=== PATIENT | male | born 1980 | race Caucasian/White ===

== ENCOUNTER 2022-07-09 18:41 | Emergency (ER) | payer BC, SELFPAY ==
[2022-07-09 18:46] VITALS: BP 149/89; PULSE 79; RESP 16; TEMP 36.5; O2SAT 98; BMI 23.6
[2022-07-09] MEDS: dexamethasone 10 mg/mL INJ IM (20:39)
[2022-07-09] MEDS: cyclobenzaprine 10 mg Tablet PO (20:39)
[2022-07-09] MEDS: ketorolac 60 mg/2 mL INJ IM (20:39)
[2022-07-09 20:54] VITALS: PULSE 78; RESP 16; O2SAT 98
--- NOTE | 2022-07-09 23:16 | W.ED.EXTPRO ---
HPI - Extremity Problem General: Chief complaint: Extremity Problem,Nontraumatic Stated complaint: Left Leg Pain\Lower Back Pain Time Seen by Provider: 07/09/22 19:33 History of Present Illness: Patient is in today for pain in his buttocks radiating down his left leg. He reports that he woke up suddenly with this on Wednesday. He states that he had not had any injury or any strenuous activity the day before. He states that he does have a history of throwing his back out , but this feels different. He states that the pain is mostly in his left buttocks and radiates down his posterior left leg to the knee. He denies any saddle anesthesia, loss of bowel or bladder continence. He denies fever, chills, nausea, vomiting. He has taken ibuprofen at home with little effect Associated symptoms: Deny chest pain or fever(s) Review of Systems Const: Denies: fever(s), chills or body aches Card: Denies: chest pain, palpitations, irregular heart rhythm, lightheadedness or syncope Resp: Denies: dyspnea, productive cough or non-productive cough GI: Denies: abdominal pain, nausea or vomiting : Denies: flank pain, dysuria, urinary frequency, urinary urgency or urinary hesitancy Musc: Reports: other (Pain left buttocks radiating down posterior left leg) Neuro: Denies: headache(s), numbness in extremities or weakness in extremities Physical Exam Const: COMMON NORMALS: no acute distress, patient oriented x3 and alert GENERAL APPEARANCE: cooperative ORIENTATION/CONSCIOUSNESS: Yes awake, Yes oriented to person, Yes oriented to place and Yes oriented to time Neck/C-Spine: COMMON NORMALS: full ROM Resp: COMMON NORMALS: normal respiratory effort, No retractions, No use of accessory muscles and clear to auscultation bilaterally EFFORT & INSPECTION: Yes symmetric chest movement AUSCULTATION: clear to auscultation bilaterally Cardio: COMMON NORMALS: regular rate, regular rhythm, S1 normal heart sound present and S2 normal heart sound present RATE: regular rate RHYTHM: regular rhythm HEART SOUNDS: S1 normal heart sound present and S2 normal heart sound present GI: COMMON NORMALS: Normal to inspection, nondistended, normoactive bowel sounds present, Soft to palpation, non-tender, No hepatosplenomegaly present, no masses and no bruits INSPECTION: Yes normal to inspection PALPATION: Yes Soft to palpation and Yes No hepatosplenomegaly present Back/Pelvis: OTHER: Pain with palpation of left buttock sciatic region. Pain is reproducible with palpation. No obvious bony deformity to the lumbar spine. Patient is walking with a slow forward flexed gait. Neuro: COMMON NORMALS: patient oriented x3 SENSORIUM/ORIENTATION: Yes alert, Yes oriented to person, Yes oriented to place and Yes oriented to time Psych: COMMON NORMALS: cooperative Course Vital Signs: Vital signs: Vital Signs Temperature 97.7 F 07/09/22 18:46 Pulse Rate 78 07/09/22 20:54 Respiratory Rate 16 07/09/22 20:54 Blood Pressure 149/89 07/09/22 18:46 Pulse Oximetry 98 07/09/22 20:54 Oxygen Delivery Me thod 07/09/22 18:46 MDM - Extremity (Nontraumatic) Medical Decision Making Differentials include lumbago, sciatica, radiculopathy Physical exam findings are consistent with sciatica. Pain is reproduced with palpation of the left buttocks sciatic region. Negative for saddle anesthesia, loss of bowel or bladder continence. Vital signs are stable. Patient is treated conservatively with steroid and Toradol. Muscle relaxant given. Educated patient about possible benefits and side effects of medications provided today. Discussed conservative treatment at home as well as typical course of sciatica. Follow-up with primary care provider. Return to the ER as needed for new or worsening symptoms. Discharge Plan Discharge Patient Disposition: Home Clinical Impression: Sciatica Qualifiers: Laterality: left Qualified Code(s): M54.32 - Sciatica, left side Condition: Stable Prescriptions: New cyclobenzaprine 10 mg tablet 10 mg PO TID PRN (Reason: muscle spasm) Qty: 9 0RF Discharge Orders: Discharge ED (Routine); Ordered 07/09/22 Ordered By: Kristen Covarrubias Referrals: Jaleel Reyes MD [Primary Care Provider] - Discharge Diet: Usual diet Discharge Activity: Increase activity as tolerated Patient Instructions: Sciatica (ED) Activity Restrictions/Additional Instructions: I recommend conservative treatment for sciatica. Warm moist compresses to the area, gentle stretches. You received Toradol and steroids in the ER tonight. You received a first dose of muscle relaxer. Do not take any more NSAIDs tonight but you may resume those tomorrow. Use the muscle relaxer every 8 hours as needed for pain and spasm. Do not drink or take any other medications that make you sleepy with that medicine. Do not drive after taking a muscle relaxer. No lifting for the next 3 days. Follow-up with primary care provider as needed. Return to the ER for new or worsening symptoms Coding Level of Care Code ED [employer] for [employer]
== END 2022-07-09 20:55 | disposition home or self-care (01) ==
PROVIDERS: Emergency Provider Nurse Practitioner Family; PCP Family Medicine
DX: M54.32 Sciatica, left side (principal)
CPT/HCPCS: 96372; 99284; J1100; J1885